=== PATIENT | male | born 1960 | race Caucasian/White ===

== ENCOUNTER 2017-06-02 12:54 | Observation (INO) | payer BC ==
[~2017-06-02] VITALS: Ht 185.4 cm; Wt 98.3 kg
[~2017-06-02 12:54] MED LIST: ALBUTEROL SULF8.5 GM IH; AMITRIPTYLINE H10 MG PO; Advair 250/50 Diskus IH; BACTRIM,SEPT1 TABLET PO; Combivent IH; FLEXERIL10 MG PO; GUAIFENESIN600 M1 PO; HYDROCODON-ACE1 EAC7 PO; Habitrol,Nicoderm CQ TD; KEFLEX500 MG PO; Levaquin PO; NORCO 5/3251 TABLET PO; OXYCODONE HCL5 MG PO; OXYCONTIN15 MG PO; PERCOCET 7.51 TABLET PO; PREDNISONE20 MG PO; ROBITUSSIN NIG118 ML PO; ZITHROMAX250 MG PO
[2017-06-02 14:05] LABS: MCH 31.9 PG (29.0-34.0); MCHC 34.8 G/DL (30.0-36.0); MCV 91.9 FL (86-99); RBC DIS.WIDTH-CV 13.4 % (11.8-14.6); RED BLOOD COUNT 4.79 M/uL (4.00-5.50); WHITE BLOOD COUNT 15.2 K/uL (4.1-10.2)
[2017-06-02 14:11] LABS: MEAN PLAT.VOLUME 10.3 uM^3 (9.0-12.4); PLATELET COUNT 313 K/uL (156-360)
[2017-06-02 14:14] LABS: CHLORIDE 104 mEq/L (99-109); POTASSIUM 5.1 mEq/L (3.7-5.4); SODIUM 140 mEq/L (136-147)
[2017-06-02 14:15] LABS: GLUCOSE 98 mg/dL (70-99)
[2017-06-02 14:17] LABS: ANION GAP 11 MEQ/L (2-14)
[2017-06-02 14:19] LABS: GFR ESTIMATE (CALCULATED) > 59 mL/min/
[2017-06-02 14:20] LABS: UREA NITROGEN (BUN) 14 mg/dL (9-23)
[2017-06-02 17:32] LABS: TROP-I INTERPRETATION NEGATIVE; TROPONIN-I < 0.01 ng/mL (0.0-0.30)
[2017-06-02 18:12] LABS: Estimated Average Glucose 117 mg/dL (70-123); HEMOGLOBIN A1c (GLYCOHEMOGLOB) 5.7 % HGB (Below 5.7)
[2017-06-02 18:30] LABS: HDL CHOLESTEROL 86 MG/DL (Desirable>=40); LDL CHOLESTEROL 74 mg/dL (Desirable<100); NON-HDL CHOLESTEROL 81 mg/dL (Desirable<160); SAMPLE HEMOLYSIS CHECK 0; SAMPLE ICTERIC CHECK 0; SAMPLE LIPEMIA CHECK 0; TOTAL CHOLESTEROL 167 mg/dL (Desirable<200); TRIGLYCERIDES 36 MG/DL (Normal: <150)
[2017-06-02 19:43] VITALS: BP 121/83
[2017-06-02] MEDS ORDERED: DUONEB 2.5-0.5 M3 ML AEROSOL (21:07)
[2017-06-02 23:42] LABS: TROP-I INTERPRETATION NEGATIVE; TROPONIN-I < 0.01 ng/mL (0.0-0.30)
[2017-06-02 23:50] VITALS: BP 113/69
[2017-06-03 04:21] VITALS: BP 121/76
[2017-06-03 05:57] LABS: TROP-I INTERPRETATION NEGATIVE; TROPONIN-I < 0.01 ng/mL (0.0-0.30)
[2017-06-03 07:44] LABS: HEMATOCRIT 38.6 % (38.0-50.0); MCH 32.4 PG (29.0-34.0); MCV 92.6 FL (86-99); MEAN PLAT.VOLUME 10.6 uM^3 (9.0-12.4); PLATELET COUNT 279 K/uL (156-360); RBC DIS.WIDTH-CV 13.6 % (11.8-14.6); RBC DIS.WIDTH-SD 46.8 % (39-53); RED BLOOD COUNT 4.17 M/uL (4.00-5.50); WHITE BLOOD COUNT 5.3 K/uL (4.1-10.2)
[2017-06-03 08:45] VITALS: BP 125/80
[2017-06-03 12:13] VITALS: BP 129/118
[2017-06-03] MEDS ORDERED: ANTIVERT25 MG PO (13:16)
[2017-06-03 15:18] VITALS: BP 113/73
[2017-06-03 20:13] VITALS: BP 121/73
[2017-06-04 00:03] VITALS: BP 123/77
[2017-06-04 04:41] VITALS: BP 126/74
[2017-06-04 08:00] VITALS: BP 134/85; BP 135/82; BP 139/85
[2017-06-04 12:30] VITALS: BP 128/87
[2017-06-04] MEDS ORDERED: ZOFRAN4 MG PO (14:26)
[2017-06-04 14:29] VITALS: BP 144/82
== END 2017-06-04 14:57 | disposition home or self-care (01) ==
LOC: EME 12:54 → EDOF 16:44 → ENRESERV 16:48 → 5WEST 19:15 → ENPENDDIS 06-04 13:57 → 5WEST 06-04 14:57
PROVIDERS: Internal Medicine; Nurse Practitioner Family
DX: H81.92 Unspecified disorder of vestibular function, left ear (principal); R55 Syncope and collapse; H93.12 Tinnitus, left ear; J44.9 Chronic obstructive pulmonary disease, unspecified; F17.200 Nicotine dependence, unspecified, uncomplicated; Z88.6 Allergy status to analgesic agent
CPT/HCPCS: 70140; 70450; 70551; 71020; 80048; 80061; 81003; 83036; 84484; 85027; 93005; 94640; 94640 76; 94760; 94799; 99202; 99281; 99285; G0378; G8978 GP CJ; G8979 GP CH; G8980 CJ; J2405

== ENCOUNTER 2017-08-26 12:29 | Emergency (ER) | payer BC ==
[~2017-08-26] VITALS: Ht 182.9 cm; Wt 77.4 kg
[~2017-08-26 12:29] MED LIST changes: +ANTIVERT25 MG PO; +DUONEB 2.5-0.5 M3 ML AEROSOL; +ZOFRAN4 MG PO
[2017-08-26 14:55] LABS: APPEARANCE CLOUDY ((CLEAR)); BILIRUBIN NEGATIVE; BLOOD LARGE; COLOR AMBER ((YELLOW)); GLUCOSE (STRIP) NEGATIVE; KETONES 20; LEUKOCYTES LARGE; NITRITE POSITIVE; PROTEIN (STRIP) 100; SPECIFIC GRAVITY 1.031 (1.000-1.030)
[2017-08-26 15:19] LABS: BACTERIA 3+ /HPF; EPITHELIAL CELLS RARE /HPF; MUCUS NONE SEEN /LPF; UCUL ADDED? YES; WHITE BLOOD CELLS TNTC /HPF (0-5)
[2017-08-26 15:45] LABS: HEMATOCRIT 41.2 % (38.0-50.0); HEMOGLOBIN 14.2 G/DL (12.5-16.6); MCH 31.8 PG (29.0-34.0); MCHC 34.5 G/DL (30.0-36.0); MCV 92.4 FL (86-99); PLATELET COUNT 234 K/uL (156-360); RBC DIS.WIDTH-CV 14.2 % (11.8-14.6); RBC DIS.WIDTH-SD 48.1 % (39-53); RED BLOOD COUNT 4.46 M/uL (4.00-5.50); WHITE BLOOD COUNT 17.3 K/uL (4.1-10.2)
[2017-08-26 15:55] LABS: CHLORIDE 104 mEq/L (99-109); GLUCOSE 98 mg/dL (70-99); POTASSIUM 4.4 mEq/L (3.7-5.4); SODIUM 137 mEq/L (136-147)
[2017-08-26 15:59] LABS: CREATININE 0.9 mg/dL (0.6-1.3); GFR ESTIMATE (CALCULATED) > 59 mL/min/ (58.99-99999)
[2017-08-26 16:00] LABS: UREA NITROGEN (BUN) 11 mg/dL (9-23)
[2017-08-26 17:30] LABS: SOURCE URINE
[2017-08-26] MEDS ORDERED: VIBRAMYCIN100 MG PO (19:10)
[2017-08-26 19:44] VITALS: BP 116/77
[2017-08-28 13:01] LABS: CHLAMYDIA TRACHOMATIS NEGATIVE; NEISSERIA GONORRHOEAE NEGATIVE
== END 2017-08-26 19:50 | disposition home or self-care (01) ==
LOC: EME 12:29
PROVIDERS: Nurse Practitioner Family
DX: N39.0 Urinary tract infection, site not specified (principal); B96.20 Unspecified Escherichia coli [E. coli] as the cause of diseases classified elsewhere; N45.1 Epididymitis; J44.9 Chronic obstructive pulmonary disease, unspecified; K21.9 Gastro-esophageal reflux disease without esophagitis; F32.9 Major depressive disorder, single episode, unspecified; F17.200 Nicotine dependence, unspecified, uncomplicated; Z79.891 Long term (current) use of opiate analgesic; Z98.1 Arthrodesis status; Z86.73 Personal history of transient ischemic attack (TIA), and cerebral infarction without residual deficits; Z88.6 Allergy status to analgesic agent
CPT/HCPCS: 74177; 80048; 81003; 85027; 87077; 87086; 87186; 87491; 87591; 94640; 99281; 99285; J0696; J2270; J2405; J7030

== ENCOUNTER 2017-08-27 17:30 | Emergency (ER) | payer BC ==
[~2017-08-27] VITALS: Ht 182.9 cm; Wt 77.2 kg
[~2017-08-27 17:30] MED LIST changes: +VIBRAMYCIN100 MG PO
[2017-08-27 21:25] LABS: BASOPHIL (%) 0.1 % (0-1); EOSINOPHIL (%) 1.7 % (0-5); EOSINOPHIL COUNT 0.2 K/uL (0-0.3); HEMATOCRIT 37.7 % (38.0-50.0); HEMOGLOBIN 13.1 G/DL (12.5-16.6); IMMATURE GRANULOCYTE (%) 0.5 % (0.0-0.7); LYMPHOCYTE (%) 11.5 % (15-42); LYMPHOCYTE COUNT 1.6 K/uL (1.0-2.8); MCH 32.3 PG (29.0-34.0); MCHC 34.7 G/DL (30.0-36.0); MCV 92.9 FL (86-99); MONOCYTE COUNT 1.4 K/uL (0-0.8); NEUTROPHIL (%) 76.2 % (45-76); NEUTROPHIL COUNT 10.8 K/uL (1.8-6.4); PLATELET COUNT 227 K/uL (156-360); RBC DIS.WIDTH-CV 13.8 % (11.8-14.6); RBC DIS.WIDTH-SD 47.6 % (39-53); RED BLOOD COUNT 4.06 M/uL (4.00-5.50); WHITE BLOOD COUNT 14.1 K/uL (4.1-10.2)
[2017-08-27 21:34] LABS: ALBUMIN 3.7 g/dL (3.2-4.8); INTER. NORMALIZED RATIO 1.1
[2017-08-27 21:35] LABS: CHLORIDE 103 mEq/L (99-109); POTASSIUM 4.2 mEq/L (3.7-5.4); SODIUM 135 mEq/L (136-147)
[2017-08-27 21:36] LABS: PTT 30.4 SEC (25-37)
[2017-08-27 21:37] LABS: GLUCOSE 95 mg/dL (70-99); TOTAL PROTEIN 6.6 g/dL (6.4-8.3)
[2017-08-27 21:39] LABS: TOTAL BILIRUBIN 0.5 mg/dL (0.0-1.0)
[2017-08-27 21:40] LABS: ALKALINE PHOSPHATASE 91 IU/L (3-129)
[2017-08-27 21:41] LABS: CREATININE 0.8 mg/dL (0.6-1.3); GFR ESTIMATE (CALCULATED) > 59 mL/min/ (58.99-99999)
[2017-08-27 21:42] LABS: AST (GOT) 13 IU/L (2-34); UREA NITROGEN (BUN) 14 mg/dL (9-23)
[2017-08-27 21:44] LABS: ALT (GPT) 13 IU/L (3-49)
[2017-08-27 22:08] LABS: APPEARANCE SL.HAZY ((CLEAR)); BILIRUBIN NEGATIVE; BLOOD NEGATIVE; COLOR AMBER ((YELLOW)); GLUCOSE (STRIP) NEGATIVE; KETONES NEGATIVE; LEUKOCYTES SMALL; NITRITE NEGATIVE; PROTEIN (STRIP) 30
[2017-08-27 22:16] LABS: BACTERIA NONE SEEN /HPF; EPITHELIAL CELLS RARE /HPF; MUCUS TRACE /LPF; RED BLOOD CELLS 0-5 /HPF (0-5); UCUL ADDED? YES; WHITE BLOOD CELLS 30-40 /HPF (0-5)
[2017-08-28] MEDS ORDERED: NORCO 5/3251 TABLET PO (01:18)
[2017-08-28] MEDS ORDERED: CIPRO500 MG PO (01:18)
[2017-08-28 01:28] VITALS: BP 107/69
== END 2017-08-28 01:29 | disposition home or self-care (01) ==
LOC: EME 17:30
PROVIDERS: Emergency Medicine
DX: N45.3 Epididymo-orchitis (principal); K21.9 Gastro-esophageal reflux disease without esophagitis; J44.9 Chronic obstructive pulmonary disease, unspecified; F32.9 Major depressive disorder, single episode, unspecified; Z86.73 Personal history of transient ischemic attack (TIA), and cerebral infarction without residual deficits; Z98.1 Arthrodesis status; Z88.6 Allergy status to analgesic agent; F17.200 Nicotine dependence, unspecified, uncomplicated
CPT/HCPCS: 76870; 80053; 81003; 85025; 85610; 85730; 87086; 94640; 99281; 99285; J2270; J2405; J3010; J7030

== ENCOUNTER 2017-12-08 12:16 | Emergency (ER) | payer OTHER ==
[~2017-12-08] VITALS: Ht 182.9 cm; Wt 79.5 kg
[~2017-12-08 12:16] MED LIST changes: +CIPRO500 MG PO
[2017-12-08 12:42] LABS: HEMOGLOBIN 14.6 G/DL (12.5-16.6); MCH 32.2 PG (29.0-34.0); MCHC 34.8 G/DL (30.0-36.0); MCV 92.5 FL (86-99); PLATELET COUNT 375 K/uL (156-360); RBC DIS.WIDTH-CV 14.3 % (11.8-14.6); RBC DIS.WIDTH-SD 48.4 % (39-53); RED BLOOD COUNT 4.54 M/uL (4.00-5.50); WHITE BLOOD COUNT 12.1 K/uL (4.1-10.2)
[2017-12-08 12:50] LABS: CHLORIDE 107 mEq/L (99-109); POTASSIUM 5.3 mEq/L (3.7-5.4); SODIUM 140 mEq/L (136-147)
[2017-12-08 12:52] LABS: GLUCOSE 111 mg/dL (70-99)
[2017-12-08 12:56] LABS: GFR ESTIMATE (CALCULATED) > 59 mL/min/ (58.99-99999)
[2017-12-08 12:57] LABS: UREA NITROGEN (BUN) 18 mg/dL (9-23)
[2017-12-08 13:02] LABS: TROP-I INTERPRETATION NEGATIVE; TROPONIN-I 0.01 ng/mL (0.0-0.30)
[2017-12-08 15:13] VITALS: BP 143/91
== END 2017-12-08 15:14 | disposition home or self-care (01) ==
LOC: EME 12:16
PROVIDERS: Emergency Medicine
DX: M54.12 Radiculopathy, cervical region (principal); R07.89 Other chest pain; I45.10 Unspecified right bundle-branch block; R94.31 Abnormal electrocardiogram [ECG] [EKG]; J44.9 Chronic obstructive pulmonary disease, unspecified; K21.9 Gastro-esophageal reflux disease without esophagitis; F32.9 Major depressive disorder, single episode, unspecified; F17.200 Nicotine dependence, unspecified, uncomplicated; Z86.19 Personal history of other infectious and parasitic diseases; Z86.79 Personal history of other diseases of the circulatory system; Z86.73 Personal history of transient ischemic attack (TIA), and cerebral infarction without residual deficits; Z98.890 Other specified postprocedural states; Z98.1 Arthrodesis status; Z88.6 Allergy status to analgesic agent
CPT/HCPCS: 71046; 80048; 84484; 85027; 93005; 99281; 99284

== ENCOUNTER 2018-01-29 10:02 | Emergency (ER) | payer OTHER ==
[~2018-01-29] VITALS: Ht 182.9 cm; Wt 81.7 kg
[2018-01-29 11:27] VITALS: BP 137/95
== END 2018-01-29 11:27 | disposition home or self-care (01) ==
LOC: EME 10:02
DX: S61.205D Unspecified open wound of left ring finger without damage to nail, subsequent encounter (principal); W31.9XXD Contact with unspecified machinery, subsequent encounter; Z88.5 Allergy status to narcotic agent; Z88.6 Allergy status to analgesic agent
CPT/HCPCS: 99281; 99283

== ENCOUNTER 2018-02-06 15:03 | Emergency (ER) | payer OTHER ==
[~2018-02-06] VITALS: Ht 182.9 cm; Wt 81.1 kg
[2018-02-06 16:10] LABS: HEMOGLOBIN 14.1 G/DL (12.5-16.6); MCH 32.2 PG (29.0-34.0); MCHC 34.4 G/DL (30.0-36.0); MCV 93.6 FL (86-99); PLATELET COUNT 322 K/uL (156-360); RBC DIS.WIDTH-CV 14.3 % (11.8-14.6); RBC DIS.WIDTH-SD 49.7 % (39-53); RED BLOOD COUNT 4.38 M/uL (4.00-5.50); WHITE BLOOD COUNT 10.2 K/uL (4.1-10.2)
[2018-02-06 16:19] LABS: CHLORIDE 106 mEq/L (99-109); POTASSIUM 4.7 mEq/L (3.7-5.4); SODIUM 138 mEq/L (136-147)
[2018-02-06 16:20] LABS: GLUCOSE 90 mg/dL (70-99)
[2018-02-06 16:24] LABS: CREATININE 0.8 mg/dL (0.6-1.3); GFR ESTIMATE (CALCULATED) > 59 mL/min/ (58.99-99999)
[2018-02-06 16:25] LABS: UREA NITROGEN (BUN) 9 mg/dL (9-23)
[2018-02-06 16:27] LABS: URIC ACID 3.9 mg/dL (3.1-9.2)
[2018-02-06 16:53] VITALS: BP 134/83
== END 2018-02-06 16:59 | disposition home or self-care (01) ==
LOC: EME 15:03 → RME 15:03
PROVIDERS: Nurse Practitioner Family
DX: M79.89 Other specified soft tissue disorders (principal); M79.641 Pain in right hand; S61.214D Laceration without foreign body of right ring finger without damage to nail, subsequent encounter; W45.8XXD Other foreign body or object entering through skin, subsequent encounter; M77.31 Calcaneal spur, right foot; M19.071 Primary osteoarthritis, right ankle and foot; J44.9 Chronic obstructive pulmonary disease, unspecified; F17.200 Nicotine dependence, unspecified, uncomplicated
CPT/HCPCS: 73130; 73630; 80048; 84550; 85027; 99281; 99284

== ENCOUNTER 2018-02-20 07:40 | Day surgery (SDC) | payer OTHER ==
[~2018-02-20] VITALS: Ht 180.3 cm; Wt 81.7 kg
[~2018-02-20 07:40] MED LIST changes: +ALLERGY RELIE15.8 ML BOTH NARES; +ALLERGY RELIEF180 MG PO; +ANORO ELLIPTA1 EACH IH; +CELEXA20 MG PO; +FLEXERIL5 MG PO; +VENTOLIN HFA18 GM IH
== END 2018-02-20 09:36 | disposition home or self-care (01) ==
LOC: PAIN 07:40 → SDC 08:15 → PAIN 08:15
PROC: 3E0R33Z Introduction of Anti-inflammatory into Spinal Canal, Percutaneous Approach (ICD-10-PCS; principal; 2018-02-20)
PROC: 3E0R3BZ Introduction of Anesthetic Agent into Spinal Canal, Percutaneous Approach (ICD-10-PCS; principal; 2018-02-20)
DX: M51.16 Intervertebral disc disorders with radiculopathy, lumbar region (principal); M47.26 Other spondylosis with radiculopathy, lumbar region; M79.1 Myalgia; J44.9 Chronic obstructive pulmonary disease, unspecified; B19.10 Unspecified viral hepatitis B without hepatic coma; I45.10 Unspecified right bundle-branch block; F17.200 Nicotine dependence, unspecified, uncomplicated; Z79.891 Long term (current) use of opiate analgesic; Z88.6 Allergy status to analgesic agent; Z88.8 Allergy status to other drugs, medicaments and biological substances
CPT/HCPCS: J1100; J2250; J3010